=== PATIENT | male | born 1980 | race Caucasian/White ===

== ENCOUNTER 2023-05-12 06:30 | Day surgery (SDC) | payer OTHER, SELFPAY ==
[2023-05-12 06:33] VITALS: BMI 29.4
[2023-05-12] MEDS: Lactated Ringers 1,000 ML 50 ML IVCONT (06:48)
[2023-05-12 06:52] VITALS: BP 156/99; PULSE 82; RESP 18; TEMP 36.4; O2SAT 97
--- NOTE | 2023-05-12 07:22 | HO.ANESPROP2 ---
HPI - Anesthesia Eval Consult details Narrative: 42 yo male patient for Colonoscopy PMFSH Active Problems Active Problems: Ulcerative Colitis Smoker- last cigarette a few hours ago Marijuana yesterday Untreated HTN Past Medical History Medical History Smoker Colitis HTN (hypertension) Family History Family history of problems with anesthesia: No Surgical History Surgical History No pertinent past surgical history H/O colonoscopy History of Problems with Anesthesia: No Social History Social History (Updated 05/12/23 @ 07:27 by Estela Barlow MD) Patient Tobacco Use Status: Current everyday Tobacco user Tobacco use type: Cigarette Substance Use Type: Marijuana Meds Allergies Allergy/AdvReac Type Severity Reaction Status Date / Time No Known Allergies Allergy Verified 05/12/23 06:56 Active Medications: Current Medications Lactated Ringer's (Lr) 1,000 mls @ 50 mls/hr IVCONT .Q20H DREW Last Admin: 05/12/23 06:48 Dose: 50 mls/hr Home Medications Medication Instructions Recorded Confirmed Last Taken Type Humira Pen 40 mg subcut USEASDIRECTD 05/11/23 05/11/23 Unknown History Exam Exam Date and Time: May 12, 2023 0722 Height,Weight and Vital Signs: Height 5 ft 10 in Weight 92.986 kg Last Vital Signs Temp 97.6 F 05/12/23 06:52 Pulse 82 05/12/23 06:52 Resp 18 05/12/23 06:52 BP 156/99 H 05/12/23 06:52 Pulse Ox 97 05/12/23 06:52 O2 Del Method Room Air 05/12/23 06:52 Airway Mallampati Class: III TM Dist: >3cm Neck ROM: Full Loose/Missing/Broken Teeth: No (Denies broken, loose, missing teeth) Heart: RRR Lungs: CTAB Assessment and Plan Assessment Anesthesia Assessment: Anesthesia Plan Discussed and Chart Reviewed Final Anesthetic Review Family History of Problems with Anesthesia: No History of Problems with Anesthesia: No NPO: Yes ASA Class: III Final Preanesthetic Review: No Changes in Pt Med Stat, Meds/Allgs Chart Reviewed, Consent Obtained/Reviewed and Anes Risks/Benef Reviewed Patient Risk: Intermediate Procedure Risk: Low Assessment/Block/Sedation in SS: Assess/Block/Sedation-SS Anesthetic Plan Anesthetic Plan: MAC: Disposition: Standard PACU
--- NOTE | 2023-05-12 07:29 | P.HPSUR_ITS ---
Pre-Procedural Eval Section A Date of Service: 05/12/23 Section B Chief Complaint: Noninfective gastroenteritis and colitis, unspecif Details of Present Illness: see H*P no changes Relevant Family History (Specify if Yes): No Relevant Social History: None Present Medications: see Short Stay Collaborative assessment Medical History: No relevant PMH History of Previous Operations: No relevant previous surgery Allergies: Allergies Allergy/AdvReac Type Severity Reaction Status Date / Time No Known Allergies Allergy Verified 05/12/23 06:56 Review of Systems Sugical H&P ROS: Negative: Constitution, Cardiovascular, Respiratory, Neurol ogical, Psychiatric, Hem-Onc, Allergic/Immunologic, Gastrointestinal, Genitourinary, Musculoskeletal, Integumentary, Endocrine and Eyes/Ears/Nose/Throat Exam Surgical H&P Exam: Normal: HEENT, Normal: Heart, Normal: Lungs, Normal: Extremities, Normal: Abdomen, Normal: Skin and Normal: Neurological Plan Diagnosis/Plan: Unchanged I have reviewed the history and physical and performed a pertinent physical examination on my patient. No changes have occurred unless specified. Time Spent With Patient Time: Total time managing care of this patient today ____ minutes.
--- NOTE | 2023-05-12 07:31 | PC.NURSE ---
dr. wilson stated patient could keep contact lens in as he sleeps with them in.
--- NOTE | 2023-05-12 08:02 | PM.OP ---
Brief Operative Note Date of Service: 05/12/23 Pre-op diagnosis: colitis Post-op diagnosis: same Procedure: colonoscopy Surgeon: Jose Angel Olvera Anesthesia: MAC Was an [employer] used for this Procedure?: No Estimated blood loss (mL): 5 Pathology: other Condition: stable Disposition: PACU
[2023-05-12 08:06] VITALS: BP 148/90; PULSE 85; RESP 26; TEMP 36.5; O2SAT 97
[2023-05-12 08:21] VITALS: BP 151/109; PULSE 79; RESP 20; TEMP 36.4; O2SAT 99
--- NOTE | 2023-05-12 09:04 | OP_ITS ---
DATE OF SERVICE: 05/12/2023 SURGEON: Jose Angel Olvera MD INDICATIONS: Colitis. PREOPERATIVE DIAGNOSIS: POSTOPERATIVE DIAGNOSIS: PROCEDURE PERFORMED: Colonoscopy to the terminal ileum with biopsy. ESTIMATED BLOOD LOSS: COMPLICATIONS: ANESTHESIA: Monitored anesthesia care. ASSISTANTS: SPECIMENS: DESCRIPTION OF PROCEDURE: The history and physical performed, the risks and benefits of the procedure were explained to the patient. Informed consent was obtained. The patient was placed in the left lateral decubitus position. A digital rectal exam was performed and was found to be normal. The Olympus pediatric video colonoscope was introduced into the rectum and advanced to the cecum. The cecum was identified by transillumination, palpation, identification of ileocecal valve. Examination was performed. The scope was removed. He tolerated the procedure well and was taken to recovery area in stable condition. FINDINGS: The terminal ileum was examined and appeared normal. This was biopsied. The visualized colonic mucosa showed changes of colitis with punctate areas of ulceration with aphthous ulcers measuring approximately 2 to 3 mm scattered throughout the colon in between were intervening normal mucosa. The appearance was consistent with Crohn's colitis. No polyps were identified. The quality of the prep was good. Biopsies were obtained from the colon beginning in the cecum extending to the rectum. Retroflexed examination was normal. IMPRESSION: Colitis, consistent with Crohn disease. RECOMMENDATIONS: Follow up the biopsy results. MD DEENA Irwin/ADAMARIS / [id number]
== END 2023-05-12 08:35 | disposition home or self-care (01) ==
PROVIDERS: Visit Provider Internal Medicine Gastroenterology
PROC: 0DJD8ZZ Inspection of Lower Intestinal Tract, Via Natural or Artificial Opening Endoscopic (ICD-10-PCS; CPT 45378; principal; 2023-05-12 07:30)
DX: K52.9 Noninfective gastroenteritis and colitis, unspecified (principal); Z80.0 Family history of malignant neoplasm of digestive organs; I10 Essential (primary) hypertension; F17.210 Nicotine dependence, cigarettes, uncomplicated; Z79.899 Other long term (current) drug therapy
CPT/HCPCS: 45380; 88305